=== PATIENT | female | born 1955 | race Caucasian/White ===

== ENCOUNTER → 2024-07-27 06:33 | Day surgery (SDC) | payer MEDICARE, OTHER, SELFPAY ==
[2024-07-27 07:35] LABS: Glucose - Point of Care 150 mg/dl (70-99)
== END ==
LOC: GI 06:33
PROVIDERS: ATTENDING PHYSICIAN Internal Medicine Gastroenterology
DX: Z12.11 Encounter for screening for malignant neoplasm of colon (principal); D12.0 Benign neoplasm of cecum; D12.3 Benign neoplasm of transverse colon; D12.5 Benign neoplasm of sigmoid colon; K62.1 Rectal polyp; K57.30 Diverticulosis of large intestine without perforation or abscess without bleeding; K64.8 Other hemorrhoids; Z86.0100 Personal history of colon polyps, unspecified
CPT/HCPCS: 45385; 45380; 88305; 82962

== ENCOUNTER → 2024-10-12 11:10 | Outpatient (REF) | payer MEDICARE, OTHER, SELFPAY | LOC: WDC 11:10 | PROVIDERS: ATTENDING PHYSICIAN Obstetrics & Gynecology Gynecology; FAMILY PHYSICIAN Internal Medicine | DX: Z12.31 Encounter for screening mammogram for malignant neoplasm of breast (principal) | CPT/HCPCS: 77063; 77067 ==

== ENCOUNTER 2025-03-25 12:49 | Emergency (ER) | payer MEDICARE, OTHER, SELFPAY ==
[2025-03-25 12:56] VITALS: BP 140/68
[2025-03-25 13:21] LABS: % Basophils 0.1 % (0-2); % Eosinophils 0.7 % (0-6); % Lymphocytes 37.8 % (20.5-51.1); % Monocytes 4.4 % (1.7-9.3); Absolute Eosinophils 0.1 10^3/uL (0-0.7); Absolute Immature Granulocytes 0.1 10^3/uL (0-0.05); Absolute Lymphocytes 3.4 10^3/uL (1.2-3.4); Absolute Monocytes 0.4 10^3/uL (0.1-0.6); Absolute Neutrophils 5.1 10^3/uL (1.4-6.5); Hematocrit 38.8 % (37.0-47.0); Hemoglobin 13.4 g/dL (12.0-16.0); Mean Corp Hgb Conc. 34.5 g/dL (33.0-37.0); Mean Corpuscular Hgb 31.4 pg (27.0-31.0); Mean Corpuscular Volume 90.9 fL (81.0-99.0); Mean Platelet Volume 10.5 fL (7.4-10.4); Nucleated Red Blood Cells % 0 %; Platelet Count 249 10^3/uL (130-400); Red Blood Cell Count 4.27 10^6/uL (4.20-5.40); Red Cell Dist. Width 13.5 % (11.5-14.5)
[2025-03-25 13:24] LABS: Urine Albumin 1+ (Neg - Trace); Urine Bilirubin Negative (Negative); Urine Character Clear (Clear); Urine Color Yellow; Urine Glucose Negative (Negative); Urine Ketone Negative (Negative); Urine Leukocyte 2+ (Negative); Urine Nitrite Negative (Negative); Urine Occult Blood Negative (Negative); Urine Urobilinogen 1+ (Neg - 1+)
[2025-03-25 13:43] LABS: ALT (SGPT) 27 U/L (0-35); AST (SGOT) 24 U/L (14-36); Albumin 4.7 g/dl (3.5-5.0); Alkaline Phosphatase 72 U/L (38-126); Blood Urea Nitrogen 28 mg/dl (7-17); Calcium 10.3 mg/dl (8.4-10.2); Carbon Dioxide 26 mmol/L (22-30); Chloride 105 mmol/L (98-107); Glucose 246 mg/dl (70-99); Lipase 305 U/L (23-300); Potassium 5.5 mmol/L (3.5-5.1); Sodium 141 mmol/L (135-145); Total Bilirubin 2.6 mg/dl (0.2-1.3); Total Protein 7.6 g/dl (6.3-8.2); eGFR > 60.00
[2025-03-25 14:35] LABS: Urine Amorphous Seen
[2025-03-25 16:19] VITALS: BMI 29.2
[2025-03-25 16:24] VITALS: BP 128/59
[2025-03-25] MEDS: PEPCID 20 MG PO (18:16)
[2025-03-25] MEDS: LEVSIN 0.25 MG PO (18:17)
--- NOTE | 2025-03-25 18:51 | ED.GENMED ---
History of Present Illness
General
Chief Complaint: Abdominal Symptoms
Time Seen by Provider: 03/25/25 16:04
History of Present Illness
History of Present Illness:
Note:
CHIEF COMPLAINT(S)
Abdominal pain and bloating, worsening over the past week.
HISTORY OF PRESENT ILLNESS
The patient is a 69-year-old female who presents with abdominal pain and feeling of bloating, which started approximately one week ago. She initially noticed the symptoms accompanied by changes in skin color described by her as pale or
yellowish. The bloating typically occurs about half an hour after eating, followed by abdominal pain, primarily at night. The patient reports darker urine than normal and light-colored stools. She denies any specific food trigger exacerbating her
symptoms.
ADDITIONAL HISTORY OBTAINED FROM SOURCES OTHER THAN THE PATIENT
Per the patients , he observed a change in the patients skin color to pale or yellowish.
PAST SURGICAL HISTORY
The patient reports having had a hernia operation a long time ago and mentions a past stomach surgery for cancer. There is no history of spine surgery through the abdomen.
PHYSICAL EXAM
- Well appearing and in no acute distress.
- Heart: Regular rate and rhythm.
- Lungs: Clear to auscultation.
- Abdomen: Diffusely tender, more pronounced in the upper abdomen with increased tenderness in the right upper quadrant and epigastrium. Negative [place] sign and no peritoneal signs noted.
- Nursing notes reviewed and vital signs reviewed.
PLAN
1. Perform an abdominal ultrasound to evaluate gallbladder and bile ducts.
2. Evaluate with a CT scan if the ultrasound is inconclusive to further assess abdominal organs.
3. Consider potential procedures if a gallstone in the bile duct is identified.
4. Monitor for signs or symptoms suggestive of gastric ulcer or severe gastritis, if imaging is non-revealing of obstruction or gallstones.
DIFFERENTIAL DIAGNOSIS
The Differential Diagnosis includes, in no particular order and is not limited to:
1. Choledocholithiasis (common bile duct stones)
2. Cholecystitis
3. Gallstones
4. Biliary obstruction
5. Hepatitis
6. Pancreatitis
7. Gastric ulcer
8. Peptic ulcer disease
9. Severe gastritis
10. Hepatic dysfunction
CARE-UPDATE
03/25/25 - 17:50
The ultrasound revealed normal gallbladder and biliary ducts with no obstruction present, ruling out gallstones as a cause for the patients pain. Although the blood work indicated elevated bilirubin likely due to non-alcoholic fatty liver disease,
this does not correlate with symptoms described by the patient. The physician suspects a gastric ulcer as the primary cause of discomfort, characterized by bloating and pain after meals. No immediate need for a CT scan is identified unless symptoms
persist without relief from medication. The patient will receive a prescription for an oral antacid. Follow-up with a GI specialist for endoscopy may be recommended if symptoms persist, but initial treatment will proceed with prescribed medication.
Disposition:
DIAGNOSIS
- Gastritis or Peptic Ulcer Disease (ICD-10: K29.70)
- Hepatic Steatosis, likely non-alcoholic (ICD-10: K76.0)
SUMMARY OF ENCOUNTER
The patient is a 69-year-old female who presented with upper abdominal pain and bloating for the past three weeks. Initial assessments suggested hyperbilirubinemia, raising concerns for potential biliary obstruction. An abdominal ultrasound was
conducted, which showed no signs of biliary obstruction or cholecystitis. The likely cause of hyperbilirubinemia is hepatic steatosis, most likely non-alcoholic in origin. The abdominal pain is tentatively attributed to gastritis or peptic ulcer
disease. There was no evidence of GI bleeding. We did discuss the potential benefit of a CT scan however at this time I have a low suspicion for acute abdominal pathology and thus do not feel as though I will provide added clinical benefit
PLAN
Initiate treatment with a proton pump inhibitor (PPI) and an H2 laura to manage gastritis or peptic ulcer disease symptoms. The patient will be referred to gastroenterology for further evaluation and management as an outpatient. The patient has
been educated on the signs and symptoms of gastrointestinal bleeding, which is a possible risk associated with anti-coagulation therapy.
INDEPENDENT INTERPRETATION OF TESTS
My independent interpretation of the abdominal ultrasound is no biliary obstruction or cholecystitis present.
PATIENT EDUCATION AND COUNSELING
The patient was informed about the signs and symptoms of gastrointestinal bleeding and provided with information on managing her condition with the prescribed medications.
FOLLOW-UP INSTRUCTIONS
The patient is advised to follow up with a gastroenterology specialist for further evaluation and management.
MEDICATION RECONCILIATION
Prescribed a proton pump inhibitor (PPI) and an H2 laura for management of symptoms.
MEDICAL DECISION MAKING
Number and Complexity of Problems Addressed: The patient presented with acute abdominal pain and bloating with possible hepatic and gastric concerns. Tests were conducted to rule out biliary obstruction, and a treatment plan was formulated.
Data: Ultrasound and blood tests were reviewed to guide the diagnosis and exclude certain conditions like cholecystitis.
Risk: Consideration for referral to gastroenterology due to ongoing symptoms and risk of gastrointestinal bleeding with medication use.
Past History
Past History
ED Past Medical History: HTN and NIDDM
Social History
Personal:
Phy Exam
Physical Exam
Physical Exam:
.
Course
Orders/Labs/Results
Orders:
Orders
03/25/25 12:58
Electrocardiogram (*1) Urgent
Reason for Study: Abdominal Pain
03/25/25 12:59
EKG- Treatment ONCE
03/25/25 13:09
Complete Blood Count/With Diff Urgent
Comprehensive Metabolic Panel Urgent
Lipase Urgent
Urinalysis Reflex To Culture Urgent
Date Specimen was Collected: 03/25/25
Time Specimen was Collected: 12:59
Urine Microscopic Reflex Cult Urgent
Urine Culture Urgent
PAUL Source: U
Specimen Description:
Date Specimen was Collected: 03/25/25
Time Specimen was Collected: 12:59
03/25/25 16:19
US Abdomen Complete/Upper Urgent
Comment:
Reason For Exam: upper abd pain, increased T bili
03/25/25 17:50
Famotidine [Pepcid] 20 mg PO NOW STA
Hyoscyamine Sulfate [Levsin] 0.25 mg PO NOW STA
Abnormal Lab Results
03/25/25
13:09
MCH 31.4 H pg
(27.0-31.0)
MPV 10.5 H fL
(7.4-10.4)
Abs Immat Gran (auto) 0.1 H 10^3/uL
(0-0.05)
Immature Gran % 1.0 H %
(0-0.5)
Potassium 5.5 H mmol/L
(3.5-5.1)
BUN 28 H mg/dl
(7-17)
Glucose 246 H mg/dl
(70-99)
Calcium 10.3 H mg/dl
(8.4-10.2)
Total Bilirubin 2.6 H mg/dl
(0.2-1.3)
Lipase 305 H U/L
(23-300)
Leukocyte Esterase Rfl 2+ A
(Negative)
Urine RBC 7-10 A /HPF
(0-2)
Urine Albumin (Reflex) 1+ A
(Neg - Trace)
03/25/25 13:09
03/25/25 13:09
Vital Signs
Initial and Last Documented VS:
Initial Vital Signs
Temp Pulse Resp BP Pulse Ox
97.8 F 57 16 140/68 98
03/25/25 12:56 03/25/25 12:56 03/25/25 12:56 03/25/25 12:56 03/25/25 12:56
Last Documented Vital Signs
Temp Pulse Resp BP Pulse Ox
97.8 F 59 18 128/59 98
03/25/25 12:56 03/25/25 16:24 03/25/25 16:24 03/25/25 16:24 03/25/25 16:24
*Critical Care Note
Total Time (30-74mins, 75-104mins- exclusive of procedures): Not Applicable
ED Attending Note
-
Portions of this chart may have been created with voice recognition software.� Occasional wrong word or��sound alike� substitutions may have occurred due to the inherent limitations of voice recognition software.
Discharge Plan
Departure
Patient Disposition: Home (Routine Discharge)
Date of Disposition: 03/25/25
Time of Disposition: 18:51
Patient with high blood pressure during this ER visit?: No
Discharge Problem:
Gastritis
Instructions: Peptic ulcer - ED discharge instructions
Prescriptions:
New
pantoprazole 40 mg tablet,delayed release (DR/EC)
40 mg PO DAILY Qty: 30 0RF
famotidine 20 mg tablet
20 mg PO BID Qty: 60 0RF
No Action
omeprazole 20 MG capsule,delayed release(DR/EC)
20 mg PO DAILY
Patient Comments:
OTC
losartan [Cozaar] 100 MG tablet
100 mg PO DAILY
sennosides-docusate sodium [TRUONG-COLACE] 1 EACH tablet
1 cap PO BID
Patient Comments:
OTC
calcium carbonate-vitamin D3 [Calcium 600 + D(3)] 1 EACH tablet
1 tab PO DAILY
rivaroxaban [Xarelto] 20 MG tablet
20 mg PO QPM
biotin 1 MG capsule
1 mg PO DAILY
metformin 500 MG tablet
500 mg PO BID@0800,1700 Qty: 0 0RF
simvastatin 10 MG tablet
10 mg PO QPM Qty: 0 0RF
glimepiride 4 MG tablet
4 mg PO DAILY Qty: 0 0RF
escitalopram oxalate 10 MG tablet
10 mg PO DAILY Qty: 0 0RF
insulin glargine [Lantus Solostar U-100 Insulin] 300 UNITS/3 ML insulin pen
30 units SC HS Qty: 0 0RF
sotalol 80 MG tablet
80 mg PO BID Qty: 60 9RF
Referrals:
Jose Francisco Alarcon MD [Active, Gastroenterology]
Activity Restrictions/Additional Instructions:
Begin the medications as prescribed the pantoprazole must be taken on an empty stomach
Follow-up with gastroenterology
Return if you develop a fever or severe uncontrolled pain
Interventions
Interventions:
*Risk Screen - Suicide Last Done: 03/25/25 12:56
*General Assessment Last Done: 03/25/25 16:20
*Neglect/Abuse Screening Last Done: 03/25/25 12:56
GG-Tjzywe-Tffmzusivs Assessment Last Done: 03/25/25 16:25
Discharge Date and Time
Print Language: GERMAN
== END 2025-03-25 19:07 | disposition home or self-care (01) ==
LOC: EMR 12:49
PROVIDERS: Emergency Medicine; EMERGENCY PHYSICIAN Emergency Medicine
DX: K29.70 Gastritis, unspecified, without bleeding (principal); I10 Essential (primary) hypertension; E11.9 Type 2 diabetes mellitus without complications
CPT/HCPCS: 99284; 76700; 80053; 81003; 81015; 83690; 85025; 87086

== ENCOUNTER 2025-04-29 06:23 | Day surgery (SDC) | payer MEDICARE, OTHER, SELFPAY ==
[2025-04-29 10:52] LABS: Glucose - Point of Care 122 mg/dl (70-99)
== END 2025-04-29 12:36 | disposition home or self-care (01) ==
LOC: GI 06:23
PROVIDERS: ATTENDING PHYSICIAN Internal Medicine Gastroenterology
DX: R12 Heartburn (principal); K29.80 Duodenitis without bleeding; K31.7 Polyp of stomach and duodenum; K31.89 Other diseases of stomach and duodenum
CPT/HCPCS: 43239; 82962; 88305; 88342

== ENCOUNTER → 2025-07-18 10:25 | Outpatient (REF) | payer MEDICARE, OTHER, SELFPAY | LOC: RAD 10:25 | PROVIDERS: ATTENDING PHYSICIAN Internal Medicine | DX: Z78.0 Asymptomatic menopausal state (principal) | CPT/HCPCS: 77080 ==

== ENCOUNTER → 2025-10-11 12:18 | Outpatient (REF) | payer MEDICARE, OTHER, SELFPAY | LOC: WDC 12:18 | PROVIDERS: ATTENDING PHYSICIAN Obstetrics & Gynecology Gynecology; FAMILY PHYSICIAN Internal Medicine | DX: Z12.31 Encounter for screening mammogram for malignant neoplasm of breast (principal) | CPT/HCPCS: 77063; 77067 ==